=== PATIENT | female | born 1985 | race Caucasian/White ===

== ENCOUNTER 2024-05-17 22:39 | Emergency (ER) | payer OTHER, SELFPAY ==
--- NOTE | 2024-05-17 22:42 | ED.GENADULT ---
HPI - General Adult General Date Seen: 05/17/24 Chief complaint: Extremity Pain/Injury, Lower Stated complaint: left foot injury Time Seen by Provider: 05/17/24 22:42 History of Present Illness HPI narrative: Pleasant 38-year-old generally healthy female presenting to the ER today with her and child for evaluation of left ankle/foot injury. She was walking down the steps of her house at about 945 when she accidentally missed the bottom step and then fell forward. She landed awkwardly on her left foot and twisted her left ankle. She fell to the ground because of the fall. She felt and heard 3 pops in her left ankle. She is not sure how she twisted it. She has not been low bit low bear weight other day ago says today. Pain is across her midfoot and lateral malleolus, more on the lateral side than on the medial side . She is able to wiggle her toes. No distal numbness. She initially had a little bit of tension radiating upper leg but is not having any ongoing pain in her mariano, calf, or knee. No other injuries Related Data Home Medications ?Medication ?Instructions ?Recorded ?Confirmed No Known Home Medications 02/26/24 05/17/24 Allergies Allergy/AdvReac Type Severity Reaction Status Date / Time amoxicillin [From Augmentin] Allergy Unknown Verified 05/17/24 22:54 bacitracin Allergy Unknown Verified 05/17/24 22:54 clavulanic acid Allergy Unknown Verified 05/17/24 22:54 [From Augmentin] neomycin Allergy Unknown Verified 05/17/24 22:54 red dye Allergy Unknown Verified 05/17/24 22:54 [facility] Social History Smoking Status: Former smoker How often do you have a drink containing alcohol: 2-3 times a week AUDIT-C Alcohol total score: 3 Non-prescribed substance use: denies use Exam Narrative: Exam Narrative: Constitutional: Appears well-developed and well-nourished. Active. Non-toxic appearing. Politely declines offered pain meds. She took Tylenol just prior to arrival. HENT: Head: Atraumatic. No signs of injury. Nose: No nasal discharge. Mouth/Throat: Mucous membranes are moist. Pharynx is normal. Tonsils symmetric. Uvula midline. Airway patent. Eyes: Conjunctivae normal and EOM are normal. Pupils are equal, round, and reactive to light. Right eye exhibits no discharge. Left eye exhibits no discharge. No icterus. Neck: Normal range of motion. Neck supple. No adenopathy. No stridor. Cardiovascular: Normal rate and regular rhythm. No murmur heard. No murmurs, rubs, or gallops. Brisk capillary refill Pulmonary/Chest: Effort normal. No stridor. No respiratory distress. No wheezes.No rhonchi. No rales. No retractions. Abdominal: Soft. Bowel sounds are normal. No distension. No mass. There is no tenderness. There is no rebound and no guarding. Musculoskeletal: Normal except for her left foot and ankle. Left lower extremity: Hip, quad, femur, hamstring nontender. Knees nontender, normal flexion and extension. No tenderness over the proximal fibula or proximal tibia. Calf is nontender. Achilles nontender. Tibial spine nontender. Ankle: She does have swelling just anterior to the lateral malleolus. Tender over the bony malleolus and the soft tissue just anterior to it. No crepitus. Medial malleolus nontender. She has limited plantar flexion and dorsiflexion due to pain. Foot: Swelling with tenderness across the lateral mid foot just distal to the lateral malleolus. No tenderness over the calcaneus. Forefoot and toes nontender. Strong DP pulse. Brisk cap refill. Intact distal sensory function. Intact distal toe wiggling pain. Neurological: Alert. Normal strength. No cranial nerve deficit or sensory deficit. Coordination normal. GCS eye subscore is 4. GCS verbal subscore is 5. GCS motor subscore is 6. Skin: Skin is warm. No rash noted. Const: Vital Signs, click to edit/add: Vital Signs - 24 hr 05/17/24 22:51 Temperature 97.7 F Pulse Rate [Pulse Oximeter] 100 Respiratory Rate 16 Blood Pressure [[facility] Upper Arm] 140/75 H Pulse Oximetry 100 Course Vital Signs Vital signs: Initial Vital Signs Temperature 97.7 F 05/17/24 22:51 Temperature Source Temporal Artery Scan 05/17/24 22:51 Pulse Rate 100 05/17/24 22:51 Respiratory Rate 16 05/17/24 22:51 Blood Pressure 140/75 H 05/17/24 22:51 Blood Pressure Mean 96 05/17/24 22:51 Blood Pressure Position Sitting 05/17/24 22:51 Pulse Oximetry 100 05/17/24 22:51 Vital Signs Temperature 97.7 F 05/17/24 22:51 Pulse Rate 100 05/17/24 22:51 Respiratory Rate 16 05/17/24 22:51 Blood Pressure 140/75 H 05/17/24 22:51 Pulse Oximetry 100 05/17/24 22:51 Temperature 97.7 F 05/17/24 22:51 Pulse Rate 100 05/17/24 22:51 Respiratory Rate 16 05/17/24 22:51 Blood Pressure 140/75 H 05/17/24 22:51 Pulse Oximetry 100 05/17/24 22:51 Medical Decision Making MDM Narrative Medical decision making narrative: Pleasant 38-year-old female presenting the ER today with her family for evaluation of left foot and ankle pain after she fell missing the last step on her stairs this evening. She felt and heard a pop in her left ankle and has not been able to bear weight because of pain in her of left ankle and on the dorsum of her left midfoot since then. Differential her includes ankle sprain, ankle fracture, ankle dislocation, midfoot injury, talus fracture, proximal 5th metatarsal fracture, calcaneus fracture, among others. Fortunately she is neurovascularly intact. X-rays do confirm evidence for a nondisplaced fracture on the dorsum of the talus. Will place the patient nonweightbearing on crutches and into a CAM walking boot. She will need outpatient follow-up with orthopedics. She will follow-up in the next 3-5 days. For now rest , elevate at the level of the heart when possible, immobilize in the cam boot, limited weight-bearing with to crutches . Precautions for return to the ER with worsening or uncontrolled pain, numbness or tingling in her foot, severe swelling, pallor, or any other concerns. Imaging Data XR left ankle: Attestation: I have reviewed the pertinent imaging results. My impression: Nondisplaced fracture on dorsal surface of talus Radiologist's impression: Findings/Impression: Suspect dorsal talar avulsion fracture. XR left foot: Attestation: I have reviewed the pertinent imaging results. My impression: Fracture on dorsal talus Radiologist's impression: Findings/Impression: Suspect avulsion fracture of the dorsal talus. Soft tissue swelling noted along the dorsal midfoot and forefoot. No other acute fracture or dislocation appreciated. Discharge Plan Discharge Clinical Impression: Avulsion fracture of talus Patient Disposition: Home, Self-Care Condition: Stable Instructions: Crutch Instructions (ED), Talar Fracture in Adults (ED) Additional Instructions: As we discussed, you have signs of a broken bone in the top of your foot. This is probably a fracture where the ligament from her ankle tore a chip of the bone. He need to wear your ankle brace (cam boot) and use crutches to limit weight-bearing on her left leg. You should follow-up with her orthopedic clinic for recheck within about 5-7 days. You can call [phone] to schedule an orthopedic follow-up appointment. Return to the ER right away if you have worsening or severe pain, numbness or pallor in your foot, severe swelling, or if you have any other concerns. Prescriptions: No Action No Known Home Medications Follow Up/Referrals: Provider,Not a Local [Primary Care Provider] - Stand Alone Forms: [employer] Info Instructions
[2024-05-17 22:51] VITALS: BP 140/75; PULSE 100; RESP 16; TEMP 36.5; O2SAT 100; BMI 23.5
--- NOTE | 2024-05-17 22:55 | CRLHL7_ITS ---
For Patients: As a result of the Century Cures Act, medical imaging exams and procedure reports are released immediately into your electronic medical record. You may view this report before your referring provider. If you have questions, please contact your health care provider. Indication: Fall, lateral malleolar pain Technique: Three views of the left ankle Comparison: None Findings/Impression: Suspect dorsal talar avulsion fracture. Dictated by Shaw Del Valle MD @ 05/17/2024 11:41:31 PM (Electronically Signed)
--- NOTE | 2024-05-17 22:55 | CRLHL7_ITS ---
For Patients: As a result of the Century Cures Act, medical imaging exams and procedure reports are released immediately into your electronic medical record. You may view this report before your referring provider. If you have questions, please contact your health care provider. Indication: Fall, lateral midfoot pain Technique: Three views of the left foot Comparison: None Findings/Impression: Suspect avulsion fracture of the dorsal talus. Soft tissue swelling noted along the dorsal midfoot and forefoot. No other acute fracture or dislocation appreciated. Dictated by Shaw Del Valle MD @ 05/17/2024 11:42:16 PM (Electronically Signed)
== END 2024-05-18 00:11 | disposition home or self-care (01) ==
PROVIDERS: Emergency Provider Emergency Medicine
DX: S92.152A Displaced avulsion fracture (chip fracture) of left talus, initial encounter for closed fracture (principal); W10.9XXA Fall (on) (from) unspecified stairs and steps, initial encounter; X50.1XXA Overexertion from prolonged static or awkward postures, initial encounter
CPT/HCPCS: 73610; 73630; 99282; 99283

== ENCOUNTER 2024-07-06 14:45 | Outpatient (RCR) | payer OTHER, SELFPAY | END 2024-07-18 14:24 | disposition home or self-care (01) | PROVIDERS: Visit Provider Physician Assistant Surgical | DX: R53.1 Weakness (principal); R26.9 Unspecified abnormalities of gait and mobility; Z51.89 Encounter for other specified aftercare | CPT/HCPCS: 97110; 97140; 97161 ==

== ENCOUNTER 2025-06-16 15:13 | Outpatient (CLI) | payer BC, SELFPAY ==
[2025-06-20 17:42] LABS: HPV Source Cervical
[2025-06-23 16:05] LABS: Pap Test Digital Imaging Done
== END 2025-06-16 15:14 | disposition home or self-care (01) ==
PROVIDERS: Visit Provider Obstetrics & Gynecology
DX: Z12.4 Encounter for screening for malignant neoplasm of cervix (principal)
CPT/HCPCS: 87624; 87625; 88141; 88142; 88175

== ENCOUNTER 2025-06-28 07:44 | Outpatient (CLI) | payer BC, SELFPAY | END 2025-06-28 07:45 | disposition home or self-care (01) | LOC: NFLDREF 07-05 03:02 | PROVIDERS: Visit Provider Obstetrics & Gynecology | DX: Z00.00 Encounter for general adult medical examination without abnormal findings (principal) | CPT/HCPCS: 80053; 80061; 84443 ==

== ENCOUNTER 2025-08-25 09:41 | Outpatient (CLI) | payer BC, SELFPAY | END 2025-08-25 09:42 | disposition home or self-care (01) | PROVIDERS: PCP Physician Assistant Medical; Visit Provider Physician Assistant Medical | DX: E78.1 Pure hyperglyceridemia (principal) | CPT/HCPCS: 80061; 83695 ==